=== PATIENT | male | born 1965 | race Caucasian/White ===

== ENCOUNTER 2018-09-10 07:30 | Inpatient (IN) ==
[2018-09-01 13:40] LABS: Appearance,Urine CLEAR; Bilirubin,Urine NEG (NEG); Color,Urine YELLOW; Glucose,Urine (UA) NEGATIVE (NEG); Leukocyte Esterase,Urine NEG /uL (NEG); Protein,Urine NEG (NEG); Specific Gravity,Urine 1.011 (1.000-1.035); Urine Blood NEG mg/dL (<0.03); Urobilinogen,Urine NEG (NEG)
[2018-09-01 13:54] LABS: Blood Urea Nitrogen 5 mg/dl (6-20)
[2018-09-01 14:07] LABS: Estimated Average Glucose(eAG) 123 mg/dL; Hemoglobin A1C 5.9 % HGB (4.0-6.0)
[2018-09-01 14:07] LABS: Basophils # (Auto) 0.1 K/mcL (0.0-0.3); Basophils % (Auto) 1.1 % (0.0-2.0); Eosinophils # (Auto) 0.6 K/mcL (0.0-0.7); Eosinophils % (Auto) 8.1 % (0.0-7.0); Granulocytes % (Auto) 45.9 % (38.0-78.0); Lymphocytes # (Auto) 2.8 K/mcL (1.5-4.8); Lymphocytes % (Auto) 37.3 % (15.5-49.0); Mean Cell Volume 86.9 fL (80.0-100.0); Mean Corpuscular HGB Conc 32.4 g/dL (31.0-36.0); Monocytes # (Auto) 0.6 K/mcL (0.1-0.9); Monocytes % (Auto) 7.6 % (1.0-12.0); Platelet Count 348 K/mcL (140-440); RBC 5.52 M/mcL (4.50-5.90); Red Cell Distribution Width 15.2 % (11.5-14.5)
[~2018-09-10 07:30] MED LIST: 0.9 % SODIUM CHLORIDE 9 ML, KETOROLAC 30 MG, ROPIVACAINE HCL/PF 49.5 ML, EPINEPHrine 0.... IJ SCH; CELECOXIB 200 MG CAPSULE PO SCH; PREGABALIN 75 MG CAPSULE PO SCH; ceFAZolin 3 GM in DEXTROSE 5% IN WATER 50 ML IV SCH; oxyCODONE 10 MG TAB.ER.12H PO SCH
[2018-09-10] MEDS ORDERED: TRIAMCINOLONE ACETONIDE 40 MG/ML VIAL INTRAARTIC ONE (12:07)
[2018-09-10] MEDS ORDERED: TRANEXAMIC ACID 1,000 MG/10 ML VIAL IV ONE (12:20)
[2018-09-10] MEDS ORDERED: MIDAZOLAM 5 MG/5 ML VIAL IV ONE (12:20)
[2018-09-10] MEDS ORDERED: DEXAMETHASONE 10 MG/ML VIAL IV ONE (12:20)
[2018-09-10] MEDS ORDERED: fentaNYL 100 MCG/2 ML VIAL IV ONE (12:20)
[2018-09-10] MEDS ORDERED: PHENYLEPHRINE 10 MG/ML VIAL IV ONE (12:20)
[2018-09-10] MEDS ORDERED: PROPOFOL 200 MG/20 ML VIAL IV ONE (12:20)
[2018-09-10] MEDS ORDERED: LIDOCAINE HCL/PF 100 MG/5 ML SYRINGE IV ONE (12:20)
[2018-09-10] MEDS ORDERED: ROPIVACAINE HCL/PF 20 ML VIAL IJ ONE (12:20)
[2018-09-10] MEDS ORDERED: BUPIVACAINE 0.5% 50 ML VIAL IJ ONE (13:12)
[2018-09-10] MEDS ORDERED: BENZOCAINE/MENTHOL 1 LOZENGE PO PRN ×2 (13:55→14:10)
[2018-09-10] MEDS ORDERED: NALOXONE HCL 0.4 MG/ML VIAL IV PRN (13:55)
[2018-09-10] MEDS ORDERED: MEPERIDINE 25 MG/ML SYRINGE IV PRN (13:55)
[2018-09-10] MEDS ORDERED: HYDROmorphone 2 MG/ML VIAL IV PRN ×2 (13:55→14:10)
[2018-09-10] MEDS ORDERED: METHOCARBAMOL 1,000 MG/10 ML VIAL IV PRN (13:55)
[2018-09-10] MEDS ORDERED: IPRATROPIUM/ALBUTEROL 3 ML AMPUL.NEB NEB PRN (13:55)
[2018-09-10] MEDS ORDERED: FLUMAZENIL 0.1 MG/ML ML IV PRN (13:55)
[2018-09-10] MEDS ORDERED: ACETAMINOPHEN 1,000 MG/100 ML BOTTLE IV ONE (13:55)
[2018-09-10] MEDS ORDERED: LACTATED RINGERS 250 ML IV PRN (13:55)
[2018-09-10] MEDS ORDERED: ONDANSETRON 4 MG/2 ML VIAL IV PRN ×2 (13:55→14:10)
[2018-09-10] MEDS ORDERED: fentaNYL 100 MCG/2 ML VIAL IV PRN (13:55)
[2018-09-10] MEDS ORDERED: KETOROLAC 30 MG/ML VIAL IV PRN (13:55)
[2018-09-10] MEDS ORDERED: LACTATED RINGERS 1,000 ML IV SCH (14:00)
[2018-09-10] MEDS ORDERED: FLEETS ADULT ENEMA PR PRN (14:10)
[2018-09-10] MEDS ORDERED: POLYETHYLENE GLYCOL 3350 17 GM PACKET PO PRN (14:10)
[2018-09-10] MEDS ORDERED: TRANEXAMIC ACID 1,000 MG/10 ML VIAL IV SCH (14:10)
[2018-09-10] MEDS ORDERED: HYDROcodone/APAP 10/325MG TABLET PO PRN (14:10)
[2018-09-10] MEDS ORDERED: BISACODYL 10 MG SUPP.RECT PR PRN (14:10)
[2018-09-10] MEDS ORDERED: MAGNESIUM HYDROXIDE 30 ML ORAL.SUSP PO PRN (14:10)
--- NOTE | 2018-09-10 14:10 | Brief Operative Note ---
Date of procedure: 09/10/18 Pre-op diagnosis: Bilateral knee DJD Post-op diagnosis: same Procedure: 1)Right robotic assisted total knee arthroplasty 2)Steroid injection to Left knee Grafts/Implants: Yes ([place] Triathlon 8 CR femur, 7 tibia, 11mm insert, 39 p atella) Anesthesia: spinal, GLMA Findings: severe arthritis Complications: none Surgeon: Shimon Guzmán Aba Therapist: Dayron Jane Estimated blood loss (cc): 30 Specimens Removed/Pathology: none sent Condition: stable Disposition: PACU
[2018-09-10] MEDS: 0.9 % SODIUM CHLORIDE 1,000 ML IV SCH ×2 (15:17→22:09)
--- NOTE | 2018-09-10 15:45 | XRay Report ---
CLINICAL INFORMATION: Post-op total knee. COMPARISON: None. FINDINGS: Total hip prostheses is anatomically aligned. No osseous abnormality. Periarticular gas and soft tissue swelling seen as expected. IMPRESSION: Negative Interpreted and Authenticated by: Slick Malave 09/10/18
[2018-09-10] MEDS: KETOROLAC 30 MG/ML VIAL IV SCH (18:02)
[2018-09-10] MEDS: ceFAZolin 1 GM VIAL IV SCH (19:32)
[2018-09-10] MEDS ORDERED: SENNOSIDES 1 TABLET PO SCH (21:00)
[2018-09-10] MEDS: ASPIRIN 325 MG ENTERIC COATED TABLET PO SCH (21:02)
[2018-09-10] MEDS: DOCUSATE SODIUM 100 MG CAPSULE PO SCH (21:02)
[2018-09-10] MEDS: 0.9 % SODIUM CHLORIDE 10 ML SYRINGE IV SCH (21:05)
[2018-09-11] MEDS: KETOROLAC 30 MG/ML VIAL IV SCH ×2 (00:27→05:56)
[2018-09-11] MEDS: 0.9 % SODIUM CHLORIDE 1,000 ML IV SCH ×2 (00:38→06:30)
[2018-09-11] MEDS: 0.9 % SODIUM CHLORIDE 10 ML SYRINGE IV SCH ×2 (04:35→05:56)
[2018-09-11] MEDS: ceFAZolin 1 GM VIAL IV SCH (04:35)
--- NOTE | 2018-09-11 07:26 | Operative Note ---
DATE OF OPERATION: 09/10/2018 PREOPERATIVE DIAGNOSIS: Bilateral knee osteoarthritis. POSTOPERATIVE DIAGNOSIS: Bilateral knee osteoarthritis. PROCEDURE PERFORMED: 1. Right robotic-assisted total knee arthroplasty placing a [place] triathlon size 8 cruciate retaining femoral component, size 7 tibial baseplate, 11 mm X3 tibial insert with a 39 mm patellar button. 2. Intra-articular corticosteroid injection of the left knee. SURGEON: Shimon Guzmán MD SILK SCREEN OPERATOR: Navjot Jane PA-C ANESTHESIA: Spinal plus general. DRAINS: None. SPECIMENS: Bone cuts, which were discarded. BLOOD LOSS: 30 mL POSTOPERATIVE CONDITION: Stable. INDICATIONS FOR SURGERY: This is a gentleman who has had longstanding progressive worsening bilateral knee pain. Radiographs showed [id number] osteoarthritis of bilateral knees. FINDINGS AT SURGERY: Severe arthritis. Post implantation showed satisfactory stability and patellar tracking. PROCEDURE IN DETAIL: The patient had been seen preoperatively and informed consent had been obtained after discussion of risks and benefits of surgery. Risks including but not limited to, bleeding; infection, possibly requiring implant removal and prolonged IV antibiotics; injury to nerves, blood vessels, and other surrounding structures; anesthetic risks; incomplete or no resolution of symptoms; stiffness; swelling; pain; clunking; DVT and pulmonary embolus risks; and the possibility of needing further revision joint surgery. He understood these risks and wished to proceed. Correct operative site was marked. He was taken to the operating room and LMA general given. The right lower extremity was carefully prepped and draped in normal sterile fashion and a timeout was performed verifying correct patient. Esmarch was used to exsanguinate the extremity and tourniquet was inflated to 300. Ioban was used over all skin surfaces and incision was made with a scalpel through skin and subcutaneous tissue. Hemostasis was attained with Bovie cautery. IrriSept was used to irrigate and then a medial parapatellar arthrotomy made. Subperiosteal exposure was done of the anterior medial tibia. Anterior horns of the menisci were removed. ACL was transected and the retropatellar fat pad was removed. We then prepared the patella to aid in exposure. Pre-resection measured 27 mm thick. Post-resection was 13 mm thick and we placed a cut protector. The patella was then subluxed and cut were placed on the femur and tibia. Two stabbing incisions were made over the femur and two over the tibia and bicortical pins placed and the arrays were connected. We did our hip center of rotation check followed by a green probe to the medial and lateral malleoli and double checks of the checkpoints. We then used the blue probe to do our mapping. Once this was completed, we used a rongeur to remove osteophytes. We then used our spoons to do our gap balancing. We ended up with 2 degrees of varus on the tibia and 3 on the femur to give us 17 mm gaps in flexion medial and lateral and extension medially. Lateral in extension was I believe 20 mm. We went ahead then and used the robotic arm to do our bone cuts. The tibia was then prepared using a boss reamer and keel punch, externally rotated as bone coverage would allow. We then elevated the femur and used a curved osteotome to remove posterior osteophytes. We then placed the femoral trial and drilled the peg holes. The 9 insert trial was placed and the knee was taken into extension. We were able to get down to 5 degrees short of full. We then prepared the patella using a 39 medialized maximally. We then placed a patellar trial and did a limited lateral facetectomy. We checked our patellar tracking and he tracked laterally. This was also present prior to resection of the patella at the beginning of the case as soon as we made our arthrotomy. So at this point I went ahead and did a lateral retinacular release using the Bovie starting at the superior pole of the patella approximately 1 cm lateral and extending this distally down to the tibia. This allowed the patella to track nicely. We went ahead and removed the trial implants. Definitive implants were opened except the insert. We went ahead and irrigated the joint with IrriSept while antibiotic cement was mixed. We made a couple of drill holes in the sclerotic medial tibia bone. We used a CO2 gun to clean and dry the cancellous surfaces and then cemented the tibia. Excess cement was removed. We cemented the femur and excess cement removed and then the 9 insert trial placed and the knee was taken into extension and the patellar button was cemented. While cement hardened, we filled the joint with IrriSept. We did remove the tibial and femoral checkpoints as well as removed the arrays and pins in the tibia and femur. We injected pain cocktail into the subcutaneous and pericapsular tissues. Once cement had fully hardened, we flexed the knee up. The insert foot and relatively easily, so I removed the 9 and trialed 11. This was able to snap in without too much difficulty and the knee was then taken into extension and it still had good extension, so we went ahead and opened an 11 insert. We irrigated with IrriSept and the insert was impacted. After a minute we pulse lavaged with saline. The knee was taken into approximately 45 degrees of flexion. Interrupted #2 FiberWire [id number] were used around the superior quadrant of the patella, interrupted #1 Vicryl [id number] inferior quadrant, running #1 Vicryl was used for patellar tendon and quad tendon and then 2-0 Monocryl for subcutaneous and isa for skin. Xeroform sterile dressings were applied. Tourniquet was released. Drapes were removed. The left knee was then carefully prepped with Betadine over the inferolateral portal and an 18 gauge needle was used to inject 4 mL of Marcaine and 2 mL of Kenalog 40 mg per mL and then a Band-Aid was placed. The patient was then awakened, extubated, and transferred to recovery. BOBBI:maria fernanda Job ID: [id number] Doc ID: [id number] Shimon Guzmán MD
--- NOTE | 2018-09-11 07:49 | Discharge Summary ---
Providers - Providers Patient information: Note initiated : 09/11/18 at 7:47 am Service Date, if different from initiated Date: [] Patient: Yury Pinedo 53 y/o M admitted on 09/10/18 for Right Robotic Total Knee Arthroplasty. Chief Complaint: [] Discharge date: 09/11/18 Hospitalization Hospital course: Pt was admitted for a R TKA. Pt underwent the procedure on the day of admission. Pt spent one night on the floor for IV pain meds, IV abx, and PT. Pt discharged post-op day 1. Will take ASA for DVT prophylaxis. Will f/u in 2 weeks. Discharge diagnosis: R knee OA Exam - Exam Clean and dry: Yes Weight bearing status: as tolerated Ortho Discharge - TKA - Patient Instructions Diet: Regular Diet Activity: activity as tolerated Total Knee Protocol: For Total Knee: Start ROM LORRAINE with stationary bike or rocking chair. Work on gaining full extension of knee. Posterior dislocation precautions provided. Hip abductor strengthening and gait training instructions provided. Apply Cryocuff as instructed. Dressing Care: May shower in 2 days - Follow Up Plan Follow Up Appointments: Dayron Jane PA-C [Physician Rotoprinter] - 09/25/18 11:20 am Disposition: Home, Self-Care Prognosis: Good Rehab Potential: Good Overall status at discharge: patient is progressing back to baseline - Orders For Discharge Prescriptions: Aspirin [Ecotrin] 325 mg PO BID #30 tab.ec HYDROcodone/APAP 10/325MG [[place] 10-325Mg] 1 - 2 tab PO Q4HP PRN #90 tab PRN Reason: Pain Level 3-6 Meloxicam [Mobic] 15 mg PO DAILY #30 tab Pending Studies Resuscitation Status Full Code Diet Regular Diet Start SatSeptember 10 141 Aspirin (Ecotrin) 325 mg PO BID FOR[facility]LY [facility], [facility]1983 Last Admin: 09/10/18 21:02 Dose: 325 mg Documented by: RBLEW Docusate Sodium (Colace) 100 mg PO BID [facility], [facility]1983 Last Admin: 09/10/18 21:02 Dose: 100 mg Documented by: RBLEW Sodium Chloride (Sodium Chloride 0.9%) 1,000 mls @ 125 mls/hr IV .Q8H [facility], [facility]1983 Last Admin: 09/11/18 00:38 Dose: 125 mls/hr Documented by: Infusion: 09/10/18 23:17 Dose: 125 mls/hr Documented by: Admin: 09/10/18 22:09 Dose: Not Given Documented by: Admin: 09/10/18 15:17 Dose: 125 mls/hr Documented by: AMMON Ketorolac Tromethamine (Toradol) 30 mg IV Q6 [facility]1983 Stop: 09/12/18 12:01 Last Admin: 09/11/18 05:56 Dose: 30 mg Documented by: Admin: 09/11/18 00:27 Dose: 30 mg Documented by: Admin: 09/10/18 18:02 Dose: 30 mg Documented by: AMMON Senna (Senokot) 2 tab PO HS KARO Last Admin: 09/10/18 21:02 Dose: 2 tab Documented by: ELIZA Sodium Chloride (Saline Flush) 10 ml IV Q8 [facility] Last Admin: 09/11/18 05:56 Dose: 10 ml Documented by: Admin: 09/11/18 04:35 Dose: 10 ml Documented by: Admin: 09/10/18 21:05 Dose: Not Given Documented by: ELIZA Shift Summary 09/11/18 04:14 Shift Summary by Edwige Jade&Ox4. Medicated with scheduled Toradol tonight, pt. has reported pain tolerable. Cryocuff on/off. Pt. was up to ambulate in hallway approx. 200 feet with FWW and SBA. Using urinal in bathroom. Dressing to R knee is C/D/I. IV to L FA is SL. Uses call light to make needs known. Pt. has been sleeping between cares tonight. Initialized on 09/11/18 04:14 - END OF NOTE
[2018-09-11] MEDS: ASPIRIN 325 MG ENTERIC COATED TABLET PO SCH (08:50)
[2018-09-11] MEDS: DOCUSATE SODIUM 100 MG CAPSULE PO SCH (08:50)
[2018-09-11] MEDS ORDERED: LISINOPRIL 20 MG TABLET PO SCH (09:00)
== END 2018-09-11 12:15 | disposition home or self-care (01) | DRG 470 ==
LOC: MEDSUR 07:44
PROVIDERS: ADMIT Orthopaedic Surgery; ATTEND Orthopaedic Surgery
PROC: STINJOR (2018-09-10 12:15)